=== PATIENT | female | born 1970 | race Caucasian/White ===

== ENCOUNTER → 2017-02-19 | Outpatient (CLI) | payer MEDICARE, OTHER ==
--- NOTE | 2017-02-19 08:38 | CT ---
EXAMINATION TYPE: CT abdomen pelvis wo con DATE OF EXAM: 02/19/2017 COMPARISON: NONE HISTORY: Lt flank pain CT DLP: 204.3 mGycm Examination of the solid and hollow viscera is limited given the lack of contrast. FINDINGS: LUNG BASES: No evidence for nodule. No evidence for infiltrate. LIVER/GB: Cholecystectomy clips are in place. No space-occupying hepatic lesion. PANCREAS: No pancreatic mass identified. No inflammatory process seen. SPLEEN: No evidence for splenomegaly. No intrasplenic lesions seen. ADRENALS: No adrenal nodules identified. No evidence for thickening. KIDNEYS: Nonobstructing nephrolithiasis upper pole right kidney. No right-sided hydronephrosis. The l eft kidney demonstrates numerous calcifications the largest measuring up to 4 mm. Multiple left parap elvic cysts versus chronic hydronephrosis. The lack of contrast limits evaluation. No evidence for pe rinephric stranding. The left kidney is malpositioned laterally. The ureters appear to be grossly unr emarkable bilaterally. Urinary bladder within normal limits. BOWEL: Appendix has a normal appearance. No evidence of bowel obstruction. No inflammatory process. Lymph nodes: No evidence for adenopathy greater than 1 cm. Abdominal aorta: Atheromatous changes seen. No evidence for aneurysm. Genital organs: No significant abnormality. Other: Severe degenerative change L5-S1 with vacuum disks noted. IMPRESSION: 1. BILATERAL NEPHROLITHIASIS LEFT MUCH GREATER THAN RIGHT. 2. LEFT-SIDED RENAL PARAPELVIC CYSTS VERSUS HYDRONEPHROSIS. AN OBSTRUCTING CALCULUS IS NOT IDENTIFIED AT THIS TIME HOWEVER.
--- NOTE | 2017-02-19 09:09 | US ---
EXAMINATION TYPE: US kidneys/renal and bladder DATE OF EXAM: 02/19/2017 COMPARISON: CT abdomen and pelvis from earlier today. CLINICAL HISTORY: N20.0 nephrolithiasis. History of kidney cysts and stones, history of partial left nephrectomy EXAM MEASUREMENTS: Right Kidney: 11.8 x 4.9 x 4.9 cm Left Kidney: 12.5 x 6.3 x 4.1 cm Right Kidney: 0.7cm echogenic focus superior pole Left Kidney: multiple echogenic foci throughout with largest seen in superior pole measuring 0.8cm, f luid within renal pelvis extending into renal calyces Bladder: wnl Bilateral Jets seen: no Increased cortical echogenicity in right kidney is present. Technologist marked 7 mm shadowing hypere choic focus which may correlate with small or faint calculi on CT upper pole level right kidney. Left kidney is markedly abnormal in appearance with increased cortical echogenicity and shadowing hyp erechoic foci that correlate with calculi on CT. IMPRESSION: Abnormal appearance of left kidney correlates with recent CT with multiple calcifications or calculi identified. Overall dysplastic appearance to left kidney raises concern if there is normal function t o the left kidney. Consider nuclear medicine renogram evaluation to assess. Advised urology follow-up .
== END | disposition home or self-care (01) ==
LOC: RADCTMAIN 07:52
PROVIDERS: ATTEND Family Medicine
DX: Q61.4 Renal dysplasia (principal)
CPT/HCPCS: 74176; 76770